=== PATIENT | male | born 1965 | race African-American/Black ===

== ENCOUNTER 2019-03-07 02:29 | Emergency (ER) | payer MEDICAID, OTHER ==
[2019-03-07] MEDS: KETOROLAC 30 MG INJ IM ×2 (03:49→03:51)
[2019-03-07] MEDS: ACETAMINOPHEN 325 MG TAB PO (03:56)
== END 2019-03-07 06:35 | disposition home or self-care (01) ==
LOC: FTE 02:29
DX: S52.125A Nondisplaced fracture of head of left radius, initial encounter for closed fracture (principal); F17.210 Nicotine dependence, cigarettes, uncomplicated; W01.0XXA Fall on same level from slipping, tripping and stumbling without subsequent striking against object, initial encounter; Y92.810 Car as the place of occurrence of the external cause
CPT/HCPCS: 29105; 73080-RT; 93971; 99284-25